=== PATIENT | female | born 1960 | race Caucasian/White ===

== ENCOUNTER → 2018-09-03 | Outpatient (REF) | payer OTHER ==
[~2018-09-03] MED LIST: ACTIVELLA1 TA1; ALLERGY10 M1 PO; BIOTIN FORTE3 MG PO; BYSTOLIC5 MG PO; CALCIUM PO; HYDROCHLORO25 MG/TAB PO; LOVASTATIN20 M1 PO; LOVASTATIN20 MG PO; NASONEX50 MCG/AC; OMEPRAZOLE20 M1 PO; OSTEO BI-FLE PO; POTASSIUM GLUCONATE; TOBRADEX 2.5 ML OP
[2018-09-03 08:25] LABS: CHOLESTEROL HDL RATIO 3.5 (<4.4 (CALC))
== END | disposition home or self-care (01) | DRG 642 ==
LOC: LAB 07:28
PROVIDERS: ATTEND Nurse Practitioner Family
DX: E78.5 Hyperlipidemia, unspecified (principal)